=== PATIENT | female | born 1970 | race Caucasian/White ===

== ENCOUNTER → 2019-06-19 12:48 | Outpatient (CLI) | payer OTHER ==
[2014-08-10 06:21] VITALS: BMI 23.0
[~2019-06-19 12:48] MED LIST: CYMBALTA60 MG PO; LYRICA75 MG PO
== END | disposition home or self-care (01) ==
LOC: D.RAD 12:48
PROVIDERS: ATTEND Pediatrics
DX: Z02.71 Encounter for disability determination (principal)

== ENCOUNTER → 2020-05-30 11:17 | Outpatient (CLI) | payer MEDICARE, MEDICAID ==
[2014-08-10 06:21] VITALS: BMI 23.0
== END | disposition home or self-care (01) ==
LOC: D.RAD 11:17
PROVIDERS: ATTEND Pain Medicine Interventional Pain Medicine
DX: M46.87 Other specified inflammatory spondylopathies, lumbosacral region (principal); M47.897 Other spondylosis, lumbosacral region; M47.817 Spondylosis without myelopathy or radiculopathy, lumbosacral region; G89.4 Chronic pain syndrome; Z79.899 Other long term (current) drug therapy; Z79.891 Long term (current) use of opiate analgesic